=== PATIENT | male | born 2000 | race Caucasian/White ===

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

== ENCOUNTER 2022-05-22 05:03 | Emergency (ER) | payer MEDICAID, SELFPAY ==
[2022-05-22 05:11] VITALS: BP 137/93; PULSE 104; RESP 16; TEMP 36.8; O2SAT 98; BMI 41.5
--- NOTE | 2022-05-22 05:31 | HMH.EDWNDL ---
Discharge Plan Disposition Chief Complaint: Wound/Laceration Prescriptions Prescriptions: No Action trazodone 50 mg Tablet 50 mg PO HS Referrals Follow up/Referrals: Abiodun Rees [Primary Care Provider] - See instructions Clinical Impressions Clinical Impression: Laceration Instructions Patient Instructions: DI for Laceration Repair Discharge ED Provider: Rachel (ED),Nayan Frank Wound/Laceration HPI General Chief Complaint: Wound/Laceration Stated Complaint: AO 05/22/22 0400 laceration left arm Time Seen by Provider: 05/22/22 05:31 Mode of Arrival: Ambulatory Source of Information: Patient Limitations: No Limitations Description of Symptoms (Recalled from ER Triage Doc. by RN): Pt states that he was washing dishes at approx 0400 when he cut his left upper forearm on a kitchen knife causing a laceration that is approx 5 inches in length. Pt reports being unsure when his last tetanus shot was but he believes it was 10 years ago. History of Present Illness HPI narrative: lac lt ant forearm this am Onset (ago): hour(s) Extremity Location: Left: forearm Place: home Patient tetanus UTD: No Context: accidental Related Data Home Medications Medication Instructions Recorded Confirmed trazodone 50 mg tablet 50 mg PO HS Insomnia 05/22/22 05/22/22 Allergies Allergy/AdvReac Type Severity Reaction Status Date / Time No Known Allergies Allergy Verified 01/23/18 12:23 [facility] Disclaimer: The information contained in this section may have been updated after the patient was seen, as this information can be updated by other users. Medical History (Updated 05/22/22 @ 05:36 by Nayan Ramos (ED), ) No significant past medical history Social History Smoking Status: Current every day smoker alcohol intake: never substance use type: denies use current occupational status: employed Travel in the last 8 weeks: None ROS Obtained: Yes All systems reviewed & no additional complaints except as documented Physical Exam General General appearance: alert Head Head exam: normocephalic Eye Eye exam: Present PERRL and EOMI ENT ENT exam: Present mucous membranes moist Neck Neck exam: Present trachea midline Respiratory Respiratory exam: Absent respiratory distress Cardiovascular Cardiovascular exam: Present regular rate Abdominal Exam Abdominal exam: Present soft Extremities Exam Extremities exam: Present full ROM Neurological Exam Neurological exam: Present alert, oriented X3 and CN II-XII intact Psychiatric Psychiatric exam: Present normal affect Skin Skin exam: Present other (5 cm lac w/o fb and neurovacular ok); Absent rash Medical Decision Making Medical Records Medical records reviewed: Yes I reviewed the patient's medical records. Toro Inquiry Pt receiving controlled substance: No Vital Signs: 05/22/22 05:11 Temperature 98.3 F Temperature Source Oral Pulse Rate [Apical] 104 H Respiratory Rate 16 Blood Pressure [Right Arm] 137/93 H Blood Pressure Mean [Right Arm] 107 Blood Pressure Source [Right Arm] Automatic Cuff Blood Pressure Position [Right Arm] Sitting 02 Sat by Pulse Oximetry 98 Oxygen Delivery Method Room Air Lab Data Lab results reviewed: Yes I reviewed the patient's lab results. Orders (Tests/Meds): ED MEDICATIONS Discontinued Medications Generic Name Dose Route Start Last Admin Trade Name Freq PRN Reason Stop Dose Admin Lidocaine HCl 10 ml 05/22/22 05:12 05/22/22 05:17 Lidocaine 1% 10ml Mdv SQ 05/22/22 05:13 10 ml ONCE ONE Administration Tetanus/Reduced Diphtheria/Acell Pertussis 0.5 ml 05/22/22 05:11 05/22/22 05:18 Tet/Diphth/Pert-Adult 0.5ml Syringe IM 05/22/22 05:12 0.5 ml .ONCE ONE Administration Medical Decision Narrative: lac repair to lt forearm Procedures Laceration Laceration 1: Site: upper extremity Side (If applicable): left Size (cm): 5 Description: line
[2022-05-22 05:38] VITALS: BP 116/75; PULSE 85; RESP 17; TEMP 36.8
== END 2022-05-22 05:46 | disposition home or self-care (01) ==
PROVIDERS: Emergency Provider Emergency Medicine; PCP Pediatrics
DX: S51.812A Laceration without foreign body of left forearm, initial encounter (principal); W26.0XXA Contact with knife, initial encounter; Y93.G1 Activity, food preparation and clean up; F17.210 Nicotine dependence, cigarettes, uncomplicated; Z23 Encounter for immunization
CPT/HCPCS: 12002; 90471; 90715; 99283; 99284

== ENCOUNTER 2022-06-02 23:57 | Emergency (ER) | payer MEDICAID, SELFPAY ==
[2022-06-02 23:58] VITALS: BP 145/85; PULSE 94; RESP 19; TEMP 36.7; O2SAT 99; BMI 41.5
--- NOTE | 2022-06-03 00:16 | HMH.EDGENADL ---
Discharge Plan Disposition Patient Disposition: Home, Self-Care Condition: Good Prescriptions Prescriptions: No Action trazodone 50 mg Tablet 50 mg PO HS Referrals Follow up/Referrals: Abiodun Rees [Primary Care Provider] - See instructions Clinical Impressions Clinical Impression: Visit for suture removal Instructions Patient Instructions: DI for Skin Abscess Discharge ED Provider: Jacob Richardson General Adult HPI General Chief complaint: Skin/Abscess/Foreign Body Stated complaint: Suture removal Time Seen by Provider: 06/03/22 00:00 Mode of Arrival: Family Vehicle Source of Information: Patient Limitations: No Limitations Description of Symptoms (Recalled from ER Triage Doc. by RN): Pt presents to ER for suture removal to left forearm. They were placed by Dr. Ramos on 05/22. No redness, pain, or tenderness noted to site. History of Present Illness HPI narrative: Patient is a 22-year-old male with past history of forearm laceration that required suture closure. They were placed on 05/22. He denies any pain or tenderness. He only comes in today for suture removal. Related Data Home Medications Medication Instructions Recorded Confirmed trazodone 50 mg tablet 50 mg PO HS Insomnia 05/22/22 05/22/22 Allergies Allergy/AdvReac Type Severity Reaction Status Date / Time No Known Allergies Allergy Verified 01/23/18 12:23 [facility] Disclaimer: The information contained in this section may have been updated after the patient was seen, as this information can be updated by other users. Medical History (Updated 06/03/22 @ 00:24 by Jacob Richardson MD) No significant past medical history Social History (Updated 05/22/22 @ 05:36 by Nayan Ramos ()MD) Smoking Status: Current every day smoker alcohol intake: never substance use type: denies use current occupational status: employed Travel in the last 8 weeks: None ROS Obtained: Yes All systems reviewed & no additional complaints except as documented Physical Exam General General appearance: alert and in no apparent distress Head Head exam: atraumatic, normocephalic and normal inspection Eye Eye exam: Present normal appearance, PERRL and EOMI ENT ENT exam: Present normal exam, normal oropharynx, mucous membranes moist and normal external ear exam Neck Neck exam: Present normal inspection, full ROM and trachea midline Chest Chest inspection: Present normal inspection and symmetric chest wall rise Respiratory Respiratory exam: Present normal lung sounds bilaterally; Absent respiratory distress Cardiovascular Cardiovascular exam: Present regular rate and normal rhythm Extremities Exam Extremities exam: Present normal inspection, full ROM, normal capillary refill and other (Well-healed laceration of the left dorsal forearm); Absent calf tenderness Back Exam Back exam: Present normal inspection; Absent tenderness Neurological Exam Neurological exam: Present alert and oriented X3 Psychiatric Psychiatric exam: Present normal affect and normal mood Skin Skin exam: Present warm, dry, intact and normal color Lymphatic Lymphatic Findings: no adenopathy Medical Decision Making Medical Records Medical records reviewed: Yes I reviewed the patient's medical records. Toro Inquiry Pt receiving controlled substance: No Vital Signs: 06/02/22 23:58 Temperature 98.1 F Temperature Source Oral Pulse Rate [Right] 94 H Respiratory Rate 19 Blood Pressure [Right Arm] 145/85 H Blood Pressure Mean [Right Arm] 105 Blood Pressure Source [Right Arm] Automatic Cuff 02 Sat by Pulse Oximetry 99 Oxygen Delivery Method Room Air Medical Decision Narrative: In review is a 22-year-old male who presents with need for suture removal. Hemodynamically stable and nontoxic-appearing. Physical exam reveals a well-healed laceration with sutures still in place. These have been in for at least 10 days. These were removed at beds
[2022-06-03 00:34] VITALS: BP 140/88; PULSE 88; RESP 20; TEMP 36.7; O2SAT 99
== END 2022-06-03 00:43 | disposition home or self-care (01) ==
PROVIDERS: Emergency Provider Student in an Organized Health Care Education/Training Program; PCP Pediatrics
DX: Z48.02 Encounter for removal of sutures (principal); S51.812D Laceration without foreign body of left forearm, subsequent encounter; F17.210 Nicotine dependence, cigarettes, uncomplicated
CPT/HCPCS: 99282

== ENCOUNTER 2022-06-06 22:06 | Emergency (ER) | payer MEDICAID, SELFPAY ==
[2022-06-06 22:08] VITALS: BP 146/88; PULSE 98; RESP 16; TEMP 36.9; O2SAT 98; BMI 41.5
--- NOTE | 2022-06-06 22:26 | XR_ITS ---
PROCEDURE INFORMATION: Exam: XR Left Forearm Exam date and time: 06/06/2022 10:26 PM Age: 22 years old Clinical indication: Injury or trauma; Blunt trauma (contusions or hematomas); Arm, lower; Patient HX: Trip and fall, left forearm lrom TECHNIQUE: Imaging protocol: Radiologic exam of the Left forearm. Views: 2 views. COMPARISON: No relevant prior studies available. FINDINGS: Bones/joints: Normal. Soft tissues: Normal. IMPRESSION: No acute findings.
--- NOTE | 2022-06-06 22:26 | XR_ITS ---
PROCEDURE INFORMATION: Exam: XR Left Elbow Exam date and time: 06/06/2022 10:26 PM Age: 22 years old Clinical indication: Injury or trauma; Blunt trauma (contusions or hematomas); Elbow; Left; Patient HX: Trip and fall, lrom TECHNIQUE: Imaging protocol: Radiologic exam of the Left elbow. Views: 3 or more views. COMPARISON: CR XR FOREARM LT 2V 06/06/2022 10:26 PM FINDINGS: Bones/joints: There are findings suggesting joint fluid. Osseous alignment is normal. No acute fracture or arthritic change seen. Soft tissues: Normal. IMPRESSION: No osseous abnormality evident. However, there is evidence of joint fluid. In the setting of recent trauma, this raises concern for radiographically occult fracture. Further evaluation with CT recommended.
--- NOTE | 2022-06-06 22:29 | HMH.EDUPEXT ---
Discharge Plan Disposition Patient Disposition: Home, Self-Care Prescriptions Prescriptions: No Action trazodone 50 mg Tablet 50 mg PO HS Referrals Follow up/Referrals: Abiodun Rees [Primary Care Provider] - See instructions Cuhck Valdovinos JR, MD [Physician] - See instructions Clinical Impressions Clinical Impression: Elbow fracture, left Instructions Patient Instructions: DI for Elbow Fracture Discharge ED Provider: Rachel (ED),Nayan Frank Upper Extremity HPI General Chief Complaint: Extremity Injury, Upper Stated Complaint: [id number] injured L arm Time Seen by Provider: 06/06/22 22:29 Mode of Arrival: Ambulatory Source of Information: Patient and Medical Record Limitations: No Limitations Description of Symptoms (Recalled from ER Triage Doc. by RN): pt advises he was out for a run when he tripped over some concrete and fell landing on his left forearm. No obvious deformities noted to the arm. Advises it is painful and he has some swelling. History of Present Illness HPI narrative: trip injury and fell and hit lt elbow and forearm with pain and swelling and dec rom MD complaint: injury to: left, elbow and forearm Onset (ago): hour(s) Other Extremity Injury: Left: elbow and forearm Other injuries: none Handedness: right Place: outdoors Severity: moderate Exacerbating factors: movement of extremity Context: fall Associated symptoms: denies other symptoms Related Data Home Medications Medication Instructions Recorded Confirmed trazodone 50 mg tablet 50 mg PO HS Insomnia 05/22/22 05/22/22 Allergies Allergy/AdvReac Type Severity Reaction Status Date / Time No Known Allergies Allergy Verified 01/23/18 12:23 [facility] Disclaimer: The information contained in this section may have been updated after the patient was seen, as this information can be updated by other users. Medical History (Updated 06/06/22 @ 23:12 by Nayan Ramos (ED)MD) No significant past medical history Social History (Updated 05/22/22 @ 05:36 by Nayan Ramos (ED)MD) Smoking Status: Current every day smoker alcohol intake: never substance use type: denies use current occupational status: employed Travel in the last 8 weeks: None ROS Obtained: Yes All systems reviewed & no additional complaints except as documented Physical Exam General General appearance: alert Head Head exam: normocephalic Eye Eye exam: Present PERRL and EOMI ENT ENT exam: Present mucous membranes moist Neck Neck exam: Present trachea midline Respiratory Respiratory exam: Absent respiratory distress Cardiovascular Cardiovascular exam: Present regular rate Expanded Upper Extremity Exam Left: Shoulder exam: Present normal inspection Elbow exam: Present tenderness, swelling and pain w/ pronation/supination; Absent full ROM Forearm/Wrist exam: Present normal inspection and tenderness Neuromotor exam: Normal wrist extension Vascular exam: Normal radial pulse Neurological Exam Neurological exam: Present alert, oriented X3 and CN II-XII intact Psychiatric Psychiatric exam: Present normal affect Skin Skin exam: Absent rash Medical Decision Making Medical Records Medical records reviewed: Yes I reviewed the patient's medical records. Toro Inquiry Pt receiving controlled substance: No Vital Signs: 06/06/22 22:08 Temperature 98.4 F Temperature Source Oral Pulse Rate [Right] 98 H Respiratory Rate 16 Blood Pressure [Right Arm] 146/88 H Blood Pressure Mean [Right Arm] 107 Blood Pressure Source [Right Arm] Automatic Cuff Blood Pressure Position [Right Arm] Sitting 02 Sat by Pulse Oximetry 98 Oxygen Delivery Method Room Air Orders (Tests/Meds): ORDERS Category Date Time Status Elbow XR left mininum 3 views [XR elbow LT min 3V] Stat Exams 06/06/22 22:26 Completed XR forearm LT 2V Stat Exams 06/06/22 22:26 Completed Radiology Data #1: Image(s):
--- NOTE | 2022-06-06 23:03 | PC.NURSE ---
in room speaking with pt at this time.
[2022-06-06 23:20] VITALS: BP 122/84; PULSE 96; RESP 20; TEMP 36.7; O2SAT 98
== END 2022-06-06 23:25 | disposition home or self-care (01) ==
PROVIDERS: Emergency Provider Emergency Medicine; PCP Pediatrics
DX: S42.402A Unspecified fracture of lower end of left humerus, initial encounter for closed fracture (principal); F17.210 Nicotine dependence, cigarettes, uncomplicated; W01.0XXA Fall on same level from slipping, tripping and stumbling without subsequent striking against object, initial encounter
CPT/HCPCS: 73080; 73090; 99284

== ENCOUNTER 2023-02-04 12:50 | Emergency (ER) | payer MEDICAID, SELFPAY ==
[2023-02-04 13:01] VITALS: BMI 35.9
[2023-02-04 13:10] VITALS: PULSE 63; RESP 18; TEMP 36.6; O2SAT 99; BMI 35.8
[2023-02-04 13:22] VITALS: BP 0/0; PULSE 63; RESP 18; TEMP 36.6; O2SAT 99
== END 2023-02-04 13:25 | disposition home or self-care (01) ==
LOC: UTC 12:55
PROVIDERS: Emergency Provider Nurse Practitioner; PCP Pediatrics
DX: Z23 Encounter for immunization (principal)
CPT/HCPCS: 96372; 99212; G0463

== ENCOUNTER 2024-01-26 19:12 | Emergency (ER) | payer MEDICAID, SELFPAY ==
[2024-01-26 19:27] VITALS: BP 136/84; PULSE 96; RESP 20; TEMP 37.2; O2SAT 99; BMI 39.2
--- NOTE | 2024-01-26 19:31 | EXP.UTC ---
Discharge Plan Disposition Patient Disposition: Home, Self-Care Condition: Good Prescriptions Prescriptions: No Action trazodone 50 mg Tablet 50 mg PO HS Referrals Follow up/Referrals: Abiodun Rees [Primary Care Provider] - See instructions Activity Restrictions/Add. Instructions Additional Instructions/Restrictions: suspect Lipoma. Follow up with primary care provider. Watch for increased size or pain. Clinical Impressions Clinical Impression: Localized swelling, mass and lump, left upper limb Instructions Patient Instructions: Lipoma Print Language Print Language: Slovenian Discharge ED Provider: Nancy Roldan [facility] [place] General Stated complaint: Lump on upper right arm, no injury Mode of Arrival: Ambulatory Source of Information: Patient Time Seen by Provider: 01/26/24 19:30 Description of Symptoms (Recalled from Triage Doc. by RN): HARD MASS ON UNDER SIDE OF ELBOW, NOT RED, SLIGHT PAIN HEENT Symptoms (Recalled from RN notes): No Resp Symptoms (Recalled from RN notes): No Skin Symptoms (Recalled from RN notes): Yes MS Symptoms (Recalled from RN notes): No Functional Status (Recalled from RN notes): WNL History of Present Illness Provider Complaint: Pt reports that he noted a mass on the outside of his elbow about 3 days ago. He reports that he had had a swollen lymph node under the same arm prior that went away on its own. He denies any injury to the site. Related Data Home Medications ?Medication ?Instructions ?Recorded ?Confirmed trazodone 50 mg tablet 50 mg PO HS Insomnia 05/22/22 05/22/22 Allergies Allergy/AdvReac Type Severity Reaction Status Date / Time No Known Allergies Allergy Verified 01/23/18 12:23 Worker's Comp Is this a Worker's Comp case?: No [facility] Disclaimer: The information contained in this section may have been updated after the patient was seen, as this information can be updated by other users. Medical History (Updated 01/26/24 @ 19:46 by Nancy Roldan APRN) No significant past medical history Social History (Updated 05/22/22 @ 05:36 by Nayan Ramos (ED)MD) Smoking Status: Current every day smoker alcohol intake: never substance use type: denies use current occupational status: employed Travel in the last 8 weeks: None ROS Obtained: Yes All systems reviewed & no additional complaints except as documented Constitutional Constitutional: Reports system reviewed and no additional complaints, except as documented Eyes Eyes: Reports system reviewed and no additional complaints, except as documented ENT Ears, Nose, Mouth, and Throat: Reports system reviewed and no additional complaints, except as documented Cardiovascular Cardiovascular: Reports system reviewed and no additional complaints, except as documented Respiratory Respiratory: Reports system reviewed and no additional complaints, except as documented Gastrointestinal Gastrointestingal: Reports system reviewed and no additional complaints, except as documented Genitourinary Male Genitourinary: Reports system reviewed and no additional complaints, except as documented Musculoskeletal Musculoskeletal: Reports system reviewed and no additional complaints, except as documented and Reports other (lump at the right elbow) Integumentary/Breasts Skin/Breast: Reports system reviewed and no additional complaints, except as documented Neurologic Neurologic: Reports system reviewed and no additional complaints, except as documented Endocrine Endocrine: Reports system reviewed and no additional complaints, except as documented Hematologic/Lymphatic Henatologic/Lymphatic: Reports system reviewed and no additional complaints, except as documented Allergic/Immunologic Allergic/Immunologic: Reports system reviewed and no additional complaints, except as documented Physical Exam General General appearance: alert and in no apparent distress Head Head exam: atraumatic and normocephalic Eye Eye exam: Present normal appearance ENT ENT exam: Present normal exam, normal oropharynx and mucous membranes moist Neck Neck exam: Present normal inspection Chest Chest inspection: Present normal inspection and symmetric chest wall rise Respiratory Respiratory exam: Present normal lung sounds bilaterally Cardiovascular Cardiovascular exam: Present regular rate, normal rhythm and normal heart sounds Abdominal Exam Abdominal exam: Present soft and normal bowel sounds Expanded Upper Extremity Exam Right: Shoulder exam: Present normal inspection Arm exam: Present normal inspection Elbow exam: Present other (lump noted at the outer elbow. Suspect lipoma) Forearm/Wrist exam: Present normal inspection Hand exam: Present normal inspection L/R Arms Bottom View: 1. lump noted Neuromotor exam: Normal wrist extension Neurosensory exam: Normal radial nerve Hand tendon exam: Normal flexor digitorum profundus (location) Vascular exam: Normal capillary refill Back Exam Back exam: Present normal inspection Neurological Exam Neurological exam: Present alert and oriented X3 Psychiatric Psychiatric exam: Present normal affect and normal mood Skin Skin exam: Present warm, dry and intact Lymphatic Lymphatic Findings: no adenopathy Medical Decision Making Medical Records Screening: Per USPSTF and CDC recommendations, given the prevalence of disease in our region, it is our hospital?s policy to screen for HIV and viral Hepatitis for all patients aged 18 and over and those with ongoing risk factors. Toro Inquiry Pt receiving controlled substance: No Toro was queried for this patient: No Vital Signs: 01/26/24 19:27 Temperature 98.9 F Temperature Source Oral Pulse Rate [Left Radial] 96 H Respiratory Rate 20 Blood Pressure [Left Arm] 136/84 Blood Pressure Mean [Left Arm] 101 02 Sat by Pulse Oximetry 99
[2024-01-26 19:46] VITALS: BP 136/84; PULSE 96; RESP 20; TEMP 37.2
== END 2024-01-26 19:49 | disposition home or self-care (01) ==
PROVIDERS: Emergency Provider Nurse Practitioner Family; PCP Pediatrics
DX: R22.32 Localized swelling, mass and lump, left upper limb (principal)
CPT/HCPCS: 99213; G0381

== ENCOUNTER 2024-05-28 23:35 | Emergency (ER) | payer MEDICAID, SELFPAY ==
[2024-05-28 23:40] VITALS: BP 139/68; PULSE 155; RESP 20; TEMP 39.2; O2SAT 96; BMI 38.7
--- NOTE | 2024-05-28 23:41 | XR_ITS ---
PROCEDURE INFORMATION: Exam: XR Chest Exam date and time: 05/29/2024 12:01 AM Age: 24 years old Clinical indication: Cough; Additional info: Cough, tachycardia TECHNIQUE: Imaging protocol: Radiologic exam of the chest. Views: 1 view. COMPARISON: No relevant prior studies available. FINDINGS: Lungs: No evidence of acute pulmonary disease or infiltrates Pleural spaces: No large effusion or pneumothorax. Heart/Mediastinum: No evidence of mediastinal widening or cardiac silhouette enlargement; the mediastinum and heart appear within normal limits for contour and size. Bones/joints: No evidence of acute osseous abnormalities within the visualized portions of the thoracic spine and ribs. Osseous structures appear appropriate for patient age. IMPRESSION: No dense parenchymal consolidation, pleural effusion, or pneumothorax.
--- NOTE | 2024-05-28 23:42 | ED_ITS ---
Discharge Plan Disposition Patient Disposition: Home, Self-Care Prescriptions Prescriptions: No Action trazodone 50 mg Tablet 50 mg PO HS Referrals Follow up/Referrals: Abiodun Rees [Primary Care Provider] - See instructions Activity Restrictions/Add. Instructions Additional Instructions/Restrictions: Please take Tylenol and ibuprofen as needed for pain and fever. Please follow- up with your primary care provider. Please return to the emergency department if you develop any new or worsening symptoms or become concerned for your health. Clinical Impressions Clinical Impression: Influenza A, Tachycardia Print Language Print Language: Yi Discharge ED Provider: Jimi Morales General Adult HPI General Chief complaint: Upper Respiratory Infection Stated complaint: dizziness, fever, cough, high pulse Time Seen by Provider: 05/28/24 23:35 History of Present Illness HPI narrative: 24-year-old male with history of anxiety, obesity presents for cough and palpitations. He reports it started shortly prior to arrival. His significant other has been sick recently but he just started coughing today. Related Data Home Medications ?Medication ?Instructions ?Recorded ?Confirmed trazodone 50 mg tablet 50 mg PO HS Insomnia 05/22/22 05/22/22 Allergies Allergy/AdvReac Type Severity Reaction Status Date / Time No Known Allergies Allergy Verified 01/23/18 12:23 [facility] Disclaimer: The information contained in this section may have been updated after the patient was seen, as this information can be updated by other users. Medical History (Updated 05/29/24 @ 00:20 by Jimi Morales MD) No significant past medical history Social History (Updated 05/22/22 @ 05:36 by Nayan Ramos ()MD) Smoking Status: Current every day smoker alcohol intake: never substance use type: denies use current occupational status: employed Travel in the last 8 weeks: None Have you lived/traveled outside [place] in past 30 days?: No Contact w/someone who lives/traveled outside [place] past 30 days?: No Exposure to someone with infectious disease in past 14 days?: No Do you have a fever (greater than 100.4 F or 38 C)?: Yes Have you tested positive for COVID-19: No Exposed to someone with COVID-19 in past 14 days?: No Do you have a sore throat?: No Do you have a cough?: Yes Do you have any weakness?: No Do you have any diarrhea?: No Are you experiencing any unusual bleeding?: No Do you have any muscle aches/pain?: No Do you have any abdominal pain?: No Are you experiencing loss of taste or smell?: No Other Medical History Have you received the Flu Vaccine for this season: No Have you received the Pneumonia Vaccine: No ROS Obtained: Yes All systems reviewed & no additional complaints except as documented Physical Exam General General appearance: alert and in no apparent distress Head Head exam: atraumatic and normocephalic Eye Eye exam: Present normal appearance, PERRL and EOMI ENT ENT exam: Present normal oropharynx and normal external ear exam Neck Neck exam: Present normal inspection and full ROM Chest Chest inspection: Present normal inspection and symmetric chest wall rise; Absent tenderness Respiratory Respiratory exam: Present normal lung sounds bilaterally; Absent respiratory distress Cardiovascular Cardiovascular exam: Present normal rhythm and tachycardia Abdominal Exam Abdominal exam: Present soft; Absent distention, tenderness or guarding Extremities Exam Extremities exam: Present normal inspection; Absent edema or joint swelling Back Exam Back exam: Present normal inspection; Absent tenderness Neurological Exam Neurological exam: Present alert and oriented X3; Absent motor sensory deficit Psychiatric Psychiatric exam: Present normal affect and normal mood Skin Skin exam: Present warm, dry and normal color Lymphatic Lymphatic Findings: no adenopathy Medical Decision Making Medical Records Medical records reviewed: Yes I reviewed the patient's medical records. Screening: Per USPSTF and CDC recommendations, given the prevalence of disease in our region, it is our hospital?s policy to screen for HIV and viral Hepatitis for all patients aged 18 and over and those with ongoing risk factors. Toro Inquiry Pt receiving controlled substance: No Toro was queried for this patient: No Vital Signs: 05/28/24 23:40 Temperature 102.6 F H Temperature Source Oral Pulse Rate [Right Brachial] 155 H Respiratory Rate 20 Blood Pressure [Right Arm] 139/68 Blood Pressure Mean [Right Arm] 91 Blood Pressure Source [Right Arm] Automatic Cuff Blood Pressure Position [Right Arm] Sitting 02 Sat by Pulse Oximetry 96 Lab Data Lab results reviewed: Yes I reviewed the patient's lab results. Lab Results 05/28/24 23:45: SARS-CoV-2 (PCR) Not detected, Influenza A Untype (PCR) Detected A, Influenza Type B (PCR) Not detected Orders (Tests/Meds): ED MEDICATIONS Discontinued Medications Generic Name Dose Route Start Last Admin Trade Name Freq PRN Reason Stop Dose Admin Acetaminophen 1,000 mg 05/28/24 23:41 05/28/24 23:48 Acetaminophen 500mg Tab PO 05/28/24 23:42 1,000 mg ONCE ONE Administration Ibuprofen 600 mg 05/28/24 23:41 05/28/24 23:48 Ibuprofen 600 Mg Tablet PO 05/28/24 23:42 600 mg ONCE ONE Administration ORDERS Category Date Time Status CXR --portable [XR chest portable] Stat Exams 05/28/24 23:41 Completed HIV Combo Routine Lab 05/28/24 23:43 Ordered Hepatitis C Ab Qual. W/ RFX Routine Lab 05/28/24 23:43 Ordered Rapid PCR Covid and Flu A/B Stat Lab 05/28/24 23:45 Completed EKG Request [ECG Request] Stat Y 05/28/24 23:41 Ordered ECG Data Tracing #1: I reviewed this ECG and interpreted as documented below: Sinus tachycardia with rate of 142, no concerning ST changes. ECG initial impression date: 05/29/24 ECG initial impression time: 23:44 Medical Decision Narrative: 24-year-old male with history of anxiety and obesity presents with cough and palpitations.. History was obtained via interactive discussion with patient family chart review. On arrival, patient is febrile to 103, tachycardic, normotensive,, moving all extremities spontaneously. Full physical exam performed and significant for no significant physical exam abnormalities, clear lungs bilaterally Differential includes but is not limited to influenza, arrhythmia, anxiety, pneumonia, pneumothorax. Patient was given Tylenol ibuprofen for fever for symptomatic management and correction of underlying abnormalities. Workup initiated including COVID flu swab, chest x-ray. On re-evaluation, patient reports symptomatic improvement heart rate improved to 120. Laboratory workup independently interpreted by me and significant influenza A. Imaging independently interpreted by me and significant for clear lungs bilaterally without pneumothorax or pneumonia. See radiology read for full review of final results. EKG independently interpreted by me and significant for sinus tachycardia. Blood work, CT imaging, IV fluids etc. was considered, but deemed unnecessary due to positive influenza test.. Given patient history, exam and workup, patient's presentation most likely represents fever and tachycardia secondary to influenza A. Patient also reports anxiety which is likely increasing his heart rate as well. He has no other significant signs of illness. Heart rate coming down with Tylenol and ibuprofen. I offered patient additional evaluation but he reports that he is feeling better and is happy to go home now. Patient was discharged in stable condition with return precautions. Procedures Risk/Benefits of Procedure(s) Were Explained: Yes Critical Care Critical Care Time Critical Care Time: No
--- NOTE | 2024-05-28 23:43 | PC.NURSE ---
Pt awake and alert Skin flushed warm and dry Resp full and easy Speech clear and appropriate. Report given to Cliff GONZALEZ
--- NOTE | 2024-05-28 23:44 | ECG_ITS ---
APPROVED REPORT Exam: Resting ECG HR:142 bpm ECG Measurements Heart Rate 142 AXES SC 151 P 74 QRSd 94 QRS 90 QT 301 T 56 QTc 383 Conclusion SINUS TACHYCARDIA, POSSIBLE ATRIAL FLUTTER NONSPECIFIC T-WAVE ABNORMALITY ABNORMAL RHYTHM ECG UNCONFIRMED REPORT Electronically signed by : WILMA CARLSON, 05/30/2024 06:48:56
[2024-05-28 23:45] VITALS: BP 127/67; O2SAT 96
[2024-05-28 23:48] LABS: Coronavirus 19, PCR Not Detected (NotDetected); Influenza B, PCR Not Detected (NotDetected)
[2024-05-28] MEDS: ACETAMINOPHEN 500MG TAB 1000 MG PO (23:48)
[2024-05-28] MEDS: IBUPROFEN 600 MG TABLET PO (23:48)
[2024-05-29 00:09] LABS: Influenza A, PCR Detected (NotDetected)
[2024-05-29 00:15] VITALS: BP 119/64; PULSE 130; O2SAT 94
[2024-05-29 00:30] VITALS: BP 116/71; PULSE 114; O2SAT 94
[2024-05-29 00:37] VITALS: BP 116/71; PULSE 114; RESP 16; TEMP 37.2; O2SAT 98
== END 2024-05-29 00:38 | disposition home or self-care (01) ==
PROVIDERS: Emergency Provider Emergency Medicine; PCP Pediatrics
DX: J10.1 Influenza due to other identified influenza virus with other respiratory manifestations (principal); R00.0 Tachycardia, unspecified; R42 Dizziness and giddiness; R50.9 Fever, unspecified; R05.9 Cough, unspecified; R00.2 Palpitations; Z72.0 Tobacco use
CPT/HCPCS: 71045; 87636; 93005; 99283